=== PATIENT | male | born 1985 | race Caucasian/White ===

== ENCOUNTER 2017-06-05 18:58 | Emergency (ER) | payer MEDICAID ==
[~2017-06-05] VITALS: Ht 182.9 cm; Wt 97.7 kg
[2017-06-05] MEDS ORDERED: MORPHINE SULFATE 4 MG/ML SYRINGE IVP ONE (19:30)
[2017-06-05] MEDS ORDERED: FentaNYL CITRATE-PF 100 MCG/2 ML VIAL IVP ONE (21:15)
[2017-06-05 21:25] VITALS: BP 122/76
== END 2017-06-05 21:39 | disposition home or self-care (01) ==
LOC: EMS 19:01
DX: M23.91 Unspecified internal derangement of right knee (principal); F12.90 Cannabis use, unspecified, uncomplicated; F17.200 Nicotine dependence, unspecified, uncomplicated
CPT/HCPCS: 29505; 73562; 96374; 96375; 99284; J2270; J3010